=== PATIENT | male | born 1960 | race Caucasian/White ===

== ENCOUNTER 2021-07-18 21:03 | Emergency (ER) | payer SELFPAY ==
--- NOTE | 2021-07-18 22:09 | CR ---
INDICATION: Shortness of breath, COVID-19 TECHNIQUE: Chest radiograph 1 view COMPARISON: 08/23/2018 FINDINGS: The sensitivity and specificity of the exam are moderately limited by the patient`s body habitus. Mediastinum: The mediastinum is normal in appearance. Mild cardiomegaly is noted without interval change. Lung: Both lungs are unremarkable in appearance. No sign of pleural effusion seen. No pneumothorax is identified. Bone and Soft tissue: Unremarkable for age. IMPRESSION: 1. Mild cardiomegaly is noted without interval change. Dictated by Roe Jean-Baptiste MD @ 07/18/2021 10:08:23 PM Dictated by: Roe Jean-Baptiste MD @ 07/18/2021 22:08:27 (Electronically Signed)
--- NOTE | 2021-07-18 22:12 | EDM.PDOC ---
ED HPI GENERAL MEDICAL PROBLEM - General Chief Complaint: Respiratory Problem Stated Complaint: COVID POSITIVE, SOB, DIZZY Time Seen by Provider: 07/18/21 21:15 - History of Present Illness INITIAL COMMENTS - FREE TEXT/NARRATIVE: HISTORY AND PHYSICAL: History of present illness: This a healthy 61-year-old gentleman with no history of hypertension, diabetes, liver, lung, kidney problems, tobacco who has a BMI of 28 who presents ER today secondary to shortness of breath. Patient reports that he was diagnosed with Covid after symptoms started approximately 8 days ago. Patient reports he has had decreased taste, headaches, nausea. Patient has any vomiting or diarrhea. Patient reports cough is nonproductive. Patient denies any recent fevers, shakes, chills but has had some tactile fevers at home. Patient denies any sore throat or ear pain. Patient has any abdominal pain or discomfort. Patient denies any calf tenderness or swelling. Patient denies any hemoptysis. Patient reports he has not had his Covid vaccine. I had a long discussion with the patient regarding Regeneron therapy and he has been given the fact sheet for patients parents and caregivers. Patient is reviewed at and all questions been answered at this time he is deferring treatment with Regeneron therapy. Review of systems: As per history of present illness and below otherwise all systems reviewed and negative. Past medical history: As per history of present illness and as reviewed below otherwise noncontributory. Surgical history: As per history of present illness and as reviewed below otherwise noncontributory. Social history: No reported history of drug abuse. Family history: As per history of present illness and as reviewed below otherwise noncontributory. Physical exam: This patient was seen and evaluated during the 2019 SARS-CoV-2 novel coronavirus pandemic period. Community viral transmission is ongoing at time of this encounter and the emergency department is operating under pandemic response procedures. Constitutional: Patient is oriented to person, place, and time. Appears well- developed and well-nourished. No distress. HEENT: Moist mucous membranes Head: Normocephalic and atraumatic Eyes: Right eye exhibits no discharge. Left eye exhibits no discharge. No scleral icterus Neck: Normal range of motion. No tracheal deviation present. Cardiovascular: Normal rate and regular rhythm. Pulmonary: Effort normal, no respiratory distress. Abdominal: No distention Musculoskeletal: Normal range of motion Neurologic: Alert and oriented to person, place and time. Skin: [place], warm and dry. Psychiatric: Normal mood and affect. Behavior is normal. Judgment and thought content normal. Nursing note and vital signs have been reviewed Chest Xray: Normal cardiac silhouette No infiltrates or effusions identified. No PTX No evidence of acute bony fracture. As interpreted by ER MD: [facility]: [] Therapeutics: [] Assessment and plan: 61-year-old who has a positive Covid test who presents ER today secondary to starting to feel short of breath x24 hours. Patient's pulse ox is 94 to 98% here in the ER. Patient is not tachypneic and able to speak in full sentences and ambulate in the ED without any shortness of breath. Patient was offered Regeneron therapy however he has deferred treatment with Regeneron at this time. Patient has not had his Covid vaccination either. Patient will be discharged home with instructions to obtain a pulse oximeter and to return to the ER if he starts developing any increased shortness of breath or if his pulse ox drops below 90%. Reassessment at the time of disposition demonstrates that the patient is in no acute distress. The patient has remained stable throughout the entire ED visit and is without objective evidence for acute process requiring urgent intervention or hospitalization. The patient is stable for discharge, counseling is provided as documented above, discussed symptomatic treatment and specific conditions for return. I have spoken with the patient/caregiver and discussed todays findings, in addition to providing specific details for the plan of care. Questions are answered and there is agreement with the plan. Definitive disposition and diagnosis as appropriate pending reevaluation and review of above. - Related Data Allergies Allergy/AdvReac Type Severity Reaction Status Date / Time No Known Allergies Allergy Verified 07/18/21 21:11 Home Meds: Home Meds . [No Known Home Meds] 01/23/14 [History] Social & Family History - Tobacco Use Tobacco Use Status *Q: Never Tobacco User Second Hand Smoke Exposure: No - Recreational Drug Use Recreational Drug Use: No ED ROS GENERAL - Review of Systems Review Of Systems: See Below ED EXAM, GENERAL - Physical Exam Exam: See Below Course - Vital Signs Last Recorded V/S: Last Vital Signs Temp 98.9 F 07/18/21 21:06 Pulse 64 07/18/21 21:06 Resp 19 07/18/21 21:06 BP 146/91 H 07/18/21 21:06 Pulse Ox 96 07/18/21 21:06 - Orders/Labs/Meds Orders: Active Orders 24 hr Category Date Time Status Chest 1V Frontal [CR] Stat Exams 07/18/21 21:25 Taken Departure - Departure Time of Disposition: 22:12 Disposition: Home, Self-Care 01 Condition: Good Clinical Impression: COVID-19 virus infection, Shortness of breath - Discharge Information Instructions: 10 Things You Can Do to Manage Your COVID-19 Symptoms at Home - [facility] (04/15/2021), COVID-19: Quarantine vs. Isolation - [facility] (09/16/2020), COVID- 19: What to Do If You Are Sick- [facility] (12/15/2020) Referrals: Shawn Chávez MD [Primary Care Provider] - Additional Instructions: You were seen and evaluated in ER today secondary to increasing shortness of breath while positive for coronavirus infection. Your chest x-ray today did not reveal any significant abnormalities. Your oxygen level has maintained between 94 to 98% while resting here in the ER. At this time, the only medication that would be offered would be Regeneron which is a monoclonal antibody that can decrease the severity of your illness. If you should change your mind about wanting to get the monoclonal antibody please return to the ED and we can assist you with the infusion. This is a medication that need to be given within 10 days of symptom onset. Please return to the ED if you start developing any increasing shortness of breath or any other new or concerning symptoms. I would recommend obtaining a pulse oximeter from the pharmacy so that he can keep tally of your oxygen level and return to the ER if your ox level should drop below 90%. 1. Your COVID-19 screening is positive. That means you do have the coronavirus and you are considered contagious. Your vital signs and oxygen saturation are well enough that you were able to monitor your symptoms at home. Continue to monitor for trouble breathing, new confusion or inability to arouse, bluish lips or face or any of the other symptoms we discussed -if this occurs please return to the emergency room. 2. Please self quarantine over the next 10 days. Inform any persons that you have been in contact with since you started becoming symptomatic that you have tested positive; they should be made aware and take the appropriate steps as needed. 3. You can take NyQuil during the evening to help get a restful night sleep. May alternate Tylenol and ibuprofen as needed for pain and fever management. 4. The [facility] department will be calling you and following up with you. The [facility] Hotline phone number , They are open Sunday - Sunday 7am - 7pm. Follow up with your primary care provider for re-evaluation and re-testing after the 10 day quarantine and discuss when you should be seen. The following information is given to patients seen in the emergency department who are being discharged to home. This information is to outline your options for follow-up care. We provide all patients seen in our emergency department with a follow-up referral. The need for follow-up, as well as the timing and circumstances, are variable depending upon the specifics of your emergency department visit. If you don't have a primary care physician on staff, we will provide you with a referral. We always advise you to contact your personal physician following an emergency department visit to inform them of the circumstance of the visit and for follow-up with them and/or the need for any referrals to a consulting specialist. The emergency department will also refer you to a specialist when appropriate. This referral assures that you have the opportunity for follow-up care with a specialist. All of these measure are taken in an effort to provide you with optimal care, which includes your follow-up. Under all circumstances we always encourage you to contact your private physician who remains a resource for coordinating your care. When calling for follow-up care, please make the office aware that this follow-up is from your recent emergency room visit. If for any reason you are refused follow-up, please contact the [facility] Emergency Department at and asked to speak to the emergency department charge nurse. [facility] [address] [place] [id number] [facility] [address] [place] [address] Sepsis Event Note (ED) - Focused Exam Vital Signs: Vital Signs Temp Pulse Resp BP Pulse Ox 07/18/21 21:06 98.9 F 64 19 146/91 H 96 - My Orders Last 24 Hours: My Active Orders 07/18/21 21:25 Chest 1V Frontal [CR] Stat - Assessment/Plan Last 24 Hours: My Active Orders 07/18/21 21:25 Chest 1V Frontal [CR] Stat
== END 2021-07-18 22:27 | disposition home or self-care (01) ==
LOC: MW.ED 21:03
DX: U07.1 COVID-19 (principal)
CPT/HCPCS: 71045; 71045-26; 99284-25

== ENCOUNTER 2024-06-12 12:01 | Emergency (ER) | payer SELFPAY ==
[2024-06-12] MEDS ORDERED: Sodium Chloride 0.9% 10 ML Syringe FLUSH PRN (12:46)
[2024-06-12 13:17] LABS: BASOPHILS PERCENT AUTO 1.4 % (0.0-1.0); EOSINOPHILS ABSOLUTE AUTO 0.37 K/uL (0.00-0.45); EOSINOPHILS PERCENT AUTO 5.2 % (0.0-6.0); HEMATOCRIT 44.2 % (42.0-52.0); HEMOGLOBIN 15.4 g/dL (14.0-18.0); IMMATURE GRAN ABSOLUTE AUTO 0.02 K/uL (0.00-0.05); IMMATURE GRAN PERCENT AUTO 0.3 % (0.0-0.4); LYMPHOCYTES ABSOLUTE AUTO 2.08 K/uL (1.00-4.80); MEAN CORPUSCULAR HEMOGLOBIN 29.8 pg (28.0-32.0); MEAN CORPUSCULAR HGB CONC 34.8 g/dL (32.0-36.0); MEAN CORPUSCULAR VOLUME 85.7 fL (83.0-99.0); MEAN PLATELET VOLUME 9.3 fL (9.4-12.4); MONOCYTES ABSOLUTE AUTO 0.69 K/uL (0.00-0.80); MONOCYTES PERCENT AUTO 9.6 % (0.0-8.0); NEUTROPHILS ABSOLUTE AUTO 3.92 K/uL (1.80-7.70); NEUTROPHILS PERCENT AUTO 54.5 % (41.0-71.0); PLATELET COUNT,PLT 217 K/uL (150-400); RED BLOOD CELL COUNT 5.16 M/uL (4.52-5.90); WHITE BLOOD CELL COUNT,WBC 7.18 K/uL (3.9-11.3)
[2024-06-12 13:42] LABS: A/G RATIO 1.1 (0.9-1.6); BILIRUBIN TOTAL 1.5 mg/dL (0.2-1.0); CALCIUM 9.3 mg/dL (8.5-10.1); CARBON DIOXIDE,CO2 26.8 mmol/L (21.0-32.0); CREATININE 0.9 mg/dL (0.8-1.3); EST CRCL DRUG DOSING (CG) 94.94 mL/min; POTASSIUM,K 4.1 mmol/L (3.5-5.1); PROTEIN TOTAL,TP 7.7 g/dL (6.4-8.2)
[2024-06-12 15:27] LABS: APPEARANCE,URINE CLEAR; BILIRUBIN,URINE NEGATIVE (NEGATIVE); COLOR,URINE YELLOW; GLUCOSE,URINE NEGATIVE (NEGATIVE); KETONES,URINE NEGATIVE (NEGATIVE); LEUKOCYTE ESTERASE,URINE NEGATIVE (NEGATIVE); NITRITE,URINE NEGATIVE (NEGATIVE); OCCULT BLOOD,URINE NEGATIVE (NEGATIVE); PROTEIN,URINE NEGATIVE (NEGATIVE); UROBILINOGEN,URINE 0.2 EU/dL (<2.0)
== END 2024-06-12 16:56 | disposition home or self-care (01) ==
LOC: MW.ED 12:01
DX: R20.2 Paresthesia of skin (principal); R03.0 Elevated blood-pressure reading, without diagnosis of hypertension; R00.1 Bradycardia, unspecified; R53.1 Weakness
CPT/HCPCS: 36415; 70450; 70450-26; 80053; 80061; 81003; 83735; 83880; 84153; 85025; 93005; 99284

== ENCOUNTER 2025-08-11 09:22 | Day surgery (SDC) | payer SELFPAY ==
[~2025-08-11 09:22] MED LIST: Sodium Chloride 0.9% 10 ML Syringe FLUSH PRN; Sodium Chloride 0.9% 2.5 ML Syringe FLUSH PRN
[2025-08-11] MEDS: Lactated Ringers 1,000 ML IV SCH (09:50)
[2025-08-11] MEDS ORDERED: propofoL 500 MG/50 ML 50 ML ONE (10:43)
== END 2025-08-11 12:35 | disposition home or self-care (01) ==
LOC: MW.SDS 09:22
PROVIDERS: ATTEND Surgery
DX: Z12.11 Encounter for screening for malignant neoplasm of colon (principal); K57.30 Diverticulosis of large intestine without perforation or abscess without bleeding; I10 Essential (primary) hypertension; E03.9 Hypothyroidism, unspecified; E78.00 Pure hypercholesterolemia, unspecified; Z79.899 Other long term (current) drug therapy
CPT/HCPCS: 45378; J2704; J7120; 00812